=== PATIENT | male | born 1970 | race Caucasian/White ===

== ENCOUNTER 2017-08-24 11:57 | Emergency (ER) | payer MEDICAID | END 2017-08-24 15:42 | disposition home or self-care (01) | LOC: FTE 11:57 | DX: J06.9 Acute upper respiratory infection, unspecified (principal); I10 Essential (primary) hypertension | CPT/HCPCS: 99283; Z7502 ==

== ENCOUNTER 2017-12-03 08:25 | Emergency (ER) | payer MEDICAID ==
[2017-12-03] MEDS: KETOROLAC 30 MG INJ IM (09:49)
[2017-12-03] MEDS: HYDROCODONE/APAP (10/325) TAB PO (09:49)
== END 2017-12-03 10:15 | disposition home or self-care (01) ==
LOC: FTE 08:25
DX: M54.5 Low back pain (principal); I10 Essential (primary) hypertension
CPT/HCPCS: 96372; 99284-25

== ENCOUNTER 2018-11-01 17:28 | Emergency (ER) | payer MEDICAID ==
[2018-11-01] MEDS: HYDROCODONE/APAP (5/325) TAB PO (17:59)
[2018-11-01] MEDS: KETOROLAC 30 MG INJ IM (18:00)
== END 2018-11-01 18:30 | disposition home or self-care (01) ==
LOC: FTE 18:30
DX: M54.5 Low back pain (principal); I10 Essential (primary) hypertension
CPT/HCPCS: 96372; 99284-25